=== PATIENT | female | born 1945 | race Caucasian/White ===

== ENCOUNTER → 2018-07-04 11:23 | Outpatient (CLI) | payer MEDICARE, BC ==
--- NOTE | ~2018-07-04 | ST ---
PATIENT:NAZARIO MOE MEDICAL RECORD: [id number] SEX: F LOCATION:[facility] ORDER #: ADMISSION DATE: 07/04/18 AGE OF PATIENT: 72 REFERRING PHYSICIAN: INTERPRETING PHYSICIAN: YADY SAAVEDRA MD DATE OF SERVICE: 07/04/2018 PROCEDURE: Nuclear stress test. INDICATION: Chest pain, hypertension, and dysrhythmia -- supraventricular tachycardia. DESCRIPTION: She was exercised on standard Tello protocol for 5 minutes achieving greater than 100% max target heart rate response with 33 mCi of sestamibi injected at peak stress, 10 mCi were used previously for rest images. FINDINGS: Gated SPECT reveals preserved ejection fraction at 71% with good wall motion and thickening and brightening throughout all segments. SPECT imaging Cardiolite was used as myocardial fusion agent. There is homogeneous uptake throughout all segments at rest and stress with no evidence of inducible ischemia or previous infarction. OVERALL IMPRESSION: 1. This is a normal nuclear stress test with no evidence of inducible ischemia or previous infarction. 2. Gated SPECT reveals a preserved ejection fraction at 71%. In this patient with ongoing symptomatology, the current scan does not suggest the presence of hemodynamically significant coronary artery disease. Evaluate noncardiac etiology of chest pain. TRANSINT:[id number] Voice Confirmation ID: [id number] DOCUMENT ID: [id number] YADY SAAVEDRA MD CC: [id number] DICTATION DATE: 07/06/18 1425 POWER MANAGER: 07/07/18 0135 DEP CLI 07/04/18 [facility] [address] [place] [address]
== END | disposition home or self-care (01) ==
LOC: D.HCCARDIO 11:23
DX: I47.1 Supraventricular tachycardia (principal)

== ENCOUNTER → 2019-07-23 08:46 | Outpatient (CLI) | payer MEDICARE, BC ==
--- NOTE | 2019-07-25 14:04 | ST ---
PATIENT:NAZARIO MOE MEDICAL RECORD: [id number] SEX: F LOCATION:[facility] ORDER #: ADMISSION DATE: 07/23/19 AGE OF PATIENT: 73 REFERRING PHYSICIAN: INTERPRETING PHYSICIAN: YADY SAAVEDRA MD DATE OF SERVICE: 07/23/2019 PROCEDURE: Nuclear stress test. INDICATION: Angina, hypertension. The patient was exercised on standard Tello protocol for 5 minutes 12 seconds achieving 85% max target heart rate response with 33 mCi of sestamibi injected at peak stress, 11 mCi were used previously for rest images. FINDINGS: Gated SPECT reveals preserved ejection fraction at 68% with good wall motion and thickening and brightening throughout all segments. SPECT imaging Cardiolite was used as myocardial fusion agent. There is homogeneous uptake throughout all segments at rest and stress with no evidence of inducible ischemia or previous infarction. OVERALL IMPRESSION: 1. This is a normal nuclear stress test with no evidence of inducible ischemia or previous infarction. 2. Gated SPECT reveals a preserved ejection fraction at 68%. In this patient with ongoing symptomatology, the current scan does not suggest the presence of hemodynamically significant coronary artery disease. Evaluate noncardiac etiology of chest pain. TRANSINT:[id number] Voice Confirmation ID: [id number] DOCUMENT ID: [id number] YADY SAAVEDRA MD at 1404 CC: ALLYN MATA MD [id number] DICTATION DATE: 07/24/19 1641 MULTI CRAFT MAINTENANCE TECHNICIAN: 07/25/19 0838 DEP CLI 07/23/19 [facility] [id number] [place] [address]
== END | disposition home or self-care (01) ==
LOC: D.HCCARDIO 08:46
PROVIDERS: ATTEND Internal Medicine Interventional Cardiology
DX: R07.9 Chest pain, unspecified (principal)